=== PATIENT | female | born 1970 ===

== ENCOUNTER 2022-05-18 11:46 | Emergency (ER) | payer OTHER, BC ==
[~2022-05-18] VITALS: Ht 165.1 cm; Wt 63.5 kg
[~2022-05-18 11:46] MED LIST: Aviane1 EACH PO; LEVO-T100 MCG PO; LOSA25 PO
[2022-05-18] MEDS ORDERED: Neurontin 100100 MG PO (15:10)
== END 2022-05-18 15:20 | disposition home or self-care (01) ==
LOC: ER 11:46
DX: M54.16 Radiculopathy, lumbar region (principal); M21.372 Foot drop, left foot; Z88.0 Allergy status to penicillin
CPT/HCPCS: J1885

== ENCOUNTER 2023-02-22 10:37 | Emergency (ER) | payer OTHER, BC ==
[~2023-02-22] VITALS: Ht 167.6 cm; Wt 65.8 kg
[~2023-02-22 10:37] MED LIST changes: +Neurontin 100100 MG PO
[2023-02-22 11:03] LABS: BASOPHILS ABSOLUTE AUTO 0.05 K/mm3 (0.00-0.23); BASOPHILS PERCENT AUTO 1 % (0-2); EOSINOPHILS ABSOLUTE AUTO 0.17 K/mm3 (0.00-0.68); EOSINOPHILS PERCENT AUTO 2 % (0-6); Hematocrit 45.8 % (33.0-51.0); Hemoglobin 15.3 g/dL (11.5-16.0); IMMATURE GRAN ABSOLUTE AUTO 0.04 K/mm3 (0.00-0.10); IMMATURE GRAN PERCENT AUTO 1 % (0-1); LYMPHOCYTES ABSOLUTE AUTO 2.93 K/mm3 (0.84-5.20); LYMPHOCYTES PERCENT AUTO 35 % (21-46); MONOCYTES ABSOLUTE AUTO 0.81 K/mm3 (0.16-1.47); MONOCYTES PERCENT AUTO 10 % (4-13); Mean Corpuscular HGB 33.3 pg (26.0-34.0); Mean Corpuscular HGB Conc 33.4 g/dL (31.5-36.5); Mean Corpuscular Volume 100 fL (80-100); Mean Platelet Volume 9.4 fL (9.1-12.4); NEUTROPHILS ABSOLUTE AUTO 4.34 K/mm3 (1.96-9.15); NEUTROPHILS PERCENT AUTO 52 % (41-73); Platelet Count 302 K/mm3 (150-400); RDW Coefficient Variation 12.9 % (11.7-14.2); RDW Standard Deviation 47.1 fL (35.1-46.3); White Blood Cell Count 8.34 K/mm3 (4.00-11.30)
[2023-02-22] MEDS ORDERED: EUTHYROX75 MC1 PO (11:08)
[2023-02-22] MEDS ORDERED: LOSA50 PO (11:08)
[2023-02-22] MEDS ORDERED: PROG100 PO (11:09)
[2023-02-22 11:17] LABS: Albumin, Blood 4.5 g/dL (3.4-5.0); Albumin/Globulin Ratio 1.2 (0.8-1.8); Bilirubin, Total 0.4 mg/dL (0.1-1.0); Bun/Creatinine Ratio 20.4 (12.0-20.0); Calcium, Blood 9.1 mg/dL (8.5-10.1); Creatinine, Blood 0.79 mg/dL (0.40-1.00); Globulin, Blood 3.6 g/dL (2.2-4.0); Magnesium, Blood 2.3 mg/dL (1.6-2.4); Potassium, Blood 3.7 mmol/L (3.5-5.5); Total Protein, Blood 8.1 g/dL (6.4-8.2)
[2023-02-22] MEDS ORDERED: TESTOSTERONE PO (11:34)
[2023-02-22] MEDS ORDERED: [UNRECOGNIZED DRUG - OTHER] PO (11:34)
[2023-02-22 13:45] VITALS: BP 127/84
== END 2023-02-22 14:15 | disposition home or self-care (01) ==
LOC: ER 10:37
PROVIDERS: Student in an Organized Health Care Education/Training Program
DX: R00.0 Tachycardia, unspecified (principal); R79.89 Other specified abnormal findings of blood chemistry; E86.0 Dehydration; R00.2 Palpitations; I10 Essential (primary) hypertension; E03.9 Hypothyroidism, unspecified; Z88.0 Allergy status to penicillin; Z79.899 Other long term (current) drug therapy
CPT/HCPCS: 71260; 80053; 83735; 83880; 84484; 85025; 85379; 93005; 93010; 93246; 99285-25; J7030; Q9967

== ENCOUNTER 2024-04-28 07:26 | Day surgery (SDC) | payer OTHER, BC ==
[~2024-04-28 07:26] MED LIST changes: +EUTHYROX75 MC1 PO; +LOSA50 PO; +PROG100 PO; +TESTOSTERONE PO; +[UNRECOGNIZED DRUG - OTHER] PO
== END 2024-04-28 23:00 | disposition home or self-care (01) ==
LOC: CT 07:26
DX: I25.10 Atherosclerotic heart disease of native coronary artery without angina pectoris (principal); K44.9 Diaphragmatic hernia without obstruction or gangrene; I10 Essential (primary) hypertension; E03.9 Hypothyroidism, unspecified; Z79.890 Hormone replacement therapy; Z79.899 Other long term (current) drug therapy; Z88.0 Allergy status to penicillin; Z90.710 Acquired absence of both cervix and uterus
CPT/HCPCS: 75574; Q9967